=== PATIENT | female | born 1995 | race Caucasian/White ===

== ENCOUNTER 2021-11-03 18:37 | Emergency (ER) | payer OTHER ==
[~2021-11-03 18:37] MED LIST: BACTRIM DS TAB1 EACH PO; IBUPROFEN800 MG PO; MACROBID100 MG PO; NEXPLANON68 MG XX
[2021-11-03 19:49] LABS: BILIRUBIN NEGATIVE (NEGATIVE); BLOOD 1+ Ery/uL (NEGATIVE); CLARITY CLEAR (CLEAR); COLOR YELLOW (YELLOW); GLUCOSE (U) TRACE mg/dL (NORMAL); LEUKOCYTES 3+ Leu/uL (NEGATIVE); NITRITE POSITIVE (NEGATIVE); PROTEIN TRACE (LOW) mg/dL (NEGATIVE); SPECIFIC GRAVITY 1.015 (1.001-1.030)
[2021-11-03 19:49] LABS: BASOPHIL 0.4 % (0-2); HCT 39.7 % (37.0-47.0); HGB 12.7 g/dl (12.5-16.0); LYMPHOCYTE 22.2 % (15-48); MCH 27.6 pg (25.0-31.0); MCV 86.3 fL (78.0-100.0); MONOCYTE 5.6 % (0-12); MPV 9.9 fL (6.0-9.5); NEUTROPHIL 70.5 % (41-80); NRBC 0; PLT 339 K/uL (150-400); RDW 13.6 % (11.5-14.0); WBC 12.4 K/uL (4.0-10.5)
[2021-11-03 19:55] LABS: AMORPHOUS URATES CRYSTALS TRACE; BACTERIA 3+; URINARY WBC TNTC
[2021-11-03 20:05] LABS: ALBUMIN 3.8 g/dL (3.4-5.0); BILIRUBIN - TOTAL 0.2 mg/dL (0.2-1.0); CREATININE 0.6 mg/dL (0.51-0.95); GLOBULIN (CALCULATION) 4.3 g/dL; POTASSIUM 3.7 mmol/L (3.5-5.1); TOTAL PROTEIN 8.1 g/dL (6.4-8.2)
[2021-11-03] MEDS ORDERED: NORCO 5-325 TA1 EACH PO (21:02)
[2021-11-03] MEDS ORDERED: ONDANSETRON ODT4 MG PO (21:02)
[2021-11-03] MEDS ORDERED: BACTRIM DS TAB1 EACH PO (21:02)
[2021-11-03] MEDS ORDERED: MIRALAX 238GM238 GM PO (21:02)
== END 2021-11-03 21:44 | disposition home or self-care (01) ==
LOC: FER 18:37
PROVIDERS: Internal Medicine
DX: K59.00 Constipation, unspecified (principal); N12 Tubulo-interstitial nephritis, not specified as acute or chronic; F17.210 Nicotine dependence, cigarettes, uncomplicated; Z91.040 Latex allergy status; Z28.310 Unvaccinated for COVID-19
CPT/HCPCS: 36415; 80053; 81001; 83690; 85025; J0696; J1170

== ENCOUNTER 2022-02-16 19:41 | Emergency (ER) | payer OTHER ==
[~2022-02-16 19:41] MED LIST changes: +MIRALAX 238GM238 GM PO; +NORCO 5-325 TA1 EACH PO; +ONDANSETRON ODT4 MG PO
[2022-02-16 20:35] LABS: INFLUENZA A NAA NEGATIVE (NEGATIVE)
[2022-02-16 20:41] LABS: CORONAVIRUS 2019 SARS-COV-2 POSITIVE (NEGATIVE)
[2022-02-16] MEDS ORDERED: MEDROL 4MG DOSEP4 MG PO (20:49)
[2022-02-16] MEDS ORDERED: VENTOLIN HFA IN18 GM INH (20:49)
== END 2022-02-16 21:16 | disposition home or self-care (01) ==
LOC: FER 19:41
PROVIDERS: Internal Medicine
DX: U07.1 COVID-19 (principal)
CPT/HCPCS: 99283; U0002